=== PATIENT | female | born 1980 | race Caucasian/White ===

== ENCOUNTER 2024-08-02 19:47 | Emergency (ER) | payer MEDICAID, SELFPAY ==
[2024-08-02 20:34] VITALS: BP 116/65; PULSE 73; RESP 18; TEMP 36.7; O2SAT 99; BMI 25.4
--- NOTE | 2024-08-02 20:43 | ED_ITS ---
HPI - General Adult General Chief complaint: Abdominal Pain Stated complaint: ENT and abd pain Time Seen by Provider: 08/02/24 23:20 Source: patient Mode of arrival: ambulatory Limitations: no limitations History of Present Illness ED Provider: Dr. Gricelda Valderrama HPI narrative: Patient comes in the emergency room complaining of sore throat, bilateral ear pain, abdominal discomfort, generalized malaise, diffuse body aches. Patient states she had subjective fever. Denies nausea vomiting or diarrhea. Related Data Previous Rx's ?Medication ?Instructions ?Recorded amoxicillin 500 mg-potassium 1 tab PO TID 10 days #30 tabs 08/02/24 clavulanate 125 mg tablet (Augmentin) ferrous sulfate 325 mg (65 mg 325 mg PO DAILY #90 tabs 08/02/24 iron) tablet Allergies Allergy/AdvReac Type Severity Reaction Status Date / Time No Known Allergies Allergy Verified 08/02/24 20:37 Review of Systems 2 Review of Systems: Constitutional : No Weight loss, complaining of subjective fever, chills, fatigue and generalized malaise ENT/Mouth : No Hearing loss, No Ear Pain, No Nasal Congestion, No Sinus Pain, No Hoarseness, complaining of sore throat, No Rhinorrhea, No Swallowing Difficulty Eyes: No Eye Pain, No Swelling, No Redness, No Foreign Body, No Discharge, No Vision Changes Cardiovascular : No Chest Pain, No SOB, No Dyspnea on Exertion, No Orthopnea, No Edema, No Palpitations Respiratory : No Cough, No Sputum, No Wheezing, No Smoke Exposure, No Dyspnea Gastrointestinal : No Nausea, No Vomiting, No Diarrhea, No Constipation, complaining of mild discomfort with no significant abdominal Pain, No Hematochezia, No Melena Genitourinary : no irregular bleeding, No Dysuria, No Urinary Frequency, No Hematuria, No Urinary Incontinence, No Urgency, No Flank Pain, No Urinary Flow Changes, No Hesitancy Musculoskeletal : No joint pain, No Myalgias, No Joint Swelling Skin : No Skin Lesions, No rash Neuro : No Weakness, No Numbness, No Paresthesias, No Loss of Consciousness, No Dizziness, No Headache Psych : No Anxiety/Panic, No Depression, No SI/HI/AH/VH, No Social Issues, Heme/Lymph: No Bruising, No Bleeding,No Lymphadenopathy Endocrine : No Polyuria, No Polydipsia, No Temperature Intolerance Physical Exam ED Vital Signs: Vital Signs - 24 hr 04/04/25 20:34 Temperature 98.1 F Pulse Rate 73 Respiratory Rate 18 Blood Pressure 116/65 Pulse Oximetry 99 Oxygen Delivery Method Room Air BMI result Body Mass Index 25.4 Const Other: Appearance: Alert. Oriented X3. No acute distress. Well-appearing Eyes: Pupils equal, round and reactive to light. ENT: Mildly erythematous oropharynx, no exudates, no abscesses, bilateral tympanic membranes within normal limits Neck: Normal inspection. Neck supple. No lymph nodes noted. No crepitus CVS: Normal heart rate and rhythm. Pulses normal. Normal S1 and S2 Respiratory: No respiratory distress. Breath sounds normal. No Wheezing. No rales Abdomen: Soft and nontender. No rigidity. No distention. Skin: Skin warm and dry. Normal skin color. Normal skin turgor. Extremities: No lower extremity edema. No Lacerations. No Rash Neuro: Oriented X 3. No motor deficit. No sensory deficit. Moving all extremities. No slurred speech. CN 2 through 12 grossly intact Psych: calm, cooperative, normal affect Course Course Course Narrative: RME performed by Usha Clancy PA-C. Patient is a 43 year old assigned female at presenting to the emergency department with sore throat, abdominal pain, bilateral ear pain, and feeling generally unwell. Detailed physical exam and review of systems are deferred to the energy efficiency engineer. Labs and swabs ordered. Patient placed back in the waiting room pending room availability and results. Medical Decision Making Medical Decision Making [facility] Narrative: Patient's white blood cell count within normal limits, patient is a bit anemic, likely iron deficiency, MCV decreased. Platelets within normal limits. Chemistry within normal limits, LFTs normal. Serology negative for influenza RSV, positive for strep Differential Diagnosis Differential Diagnoses: The differential diagnosis associated with the presentation includes (As above) Lab Data [facility] Lab Attestation statement: I reviewed the patient's lab results. 08/02/24 20:52 08/02/24 20:52 Labs: Lab Results 08/02/24 08/02/24 Range/Units 20:52 21:27 WBC 5.6 (4.8-10.8) X10*3/uL RBC 4.36 (4.20-5.50) X10*6/uL Hgb 9.4 L (12.0-16.0) g/dl Hct 30.6 L (37.0-47.0) % MCV 70.2 L (80.0-98.0) fL MCH 21.6 L (27.0-33.0) pg MCHC 30.7 L (31.0-35.0) g/dl RDW 15.9 (11.0-16.0) % Plt Count 229 (160-400) X10*3/uL MPV 11.2 (9.4-12.3) fL Immature Gran % (Auto) 0.4 (0.0-0.4) % Neut % (Auto) 60.8 (45-73) % Lymph % (Auto) 27.5 (20-40) % Haakon % (Auto) 7.9 (2-11) % Eos % (Auto) 2.7 (0-4) % Baso % (Auto) 0.7 (0-2) % Lymph # (Auto) 1.5 (1.2-4.9) X10*3/uL Haakon # (Auto) 0.4 (0.1-1.2) X10*3/uL Eos # (Auto) 0.2 (0.0-0.4) X10*3/uL Baso # (Auto) 0.0 (0.0-0.2) X10*3/uL Abs Immat Gran (auto) 0.02 (0.00-0.03) X10*3/uL Absolute Neuts (auto) 3.4 (2.0-8.3) x10*3/uL Absolute Nucleated RBC 0.000 (0.0-0.012) X10*3/uL Nucleated RBC % (auto) 0.0 (0.0-0.2) /100WBC Sodium 141 (135-145) mmol/L Potassium 4.0 (3.3-5.1) mmol/L Chloride 111 H (96-108) mmol/L Carbon Dioxide 24 (22-29) mmol/L Anion Gap 10 L (12-20) BUN 15 (9-16) mg/dL Creatinine 0.82 (0.5-1.4) mg/dL Estim Creat Clear Calc 81.0 Estimated GFR > 60 Random Glucose 97 (60-115) mg/dL Calcium 9.6 (8.4-10.2) mg/dL Total Bilirubin 0.2 (0.0-1.0) mg/dL AST 18 (5-31) U/L ALT 8 (0-31) U/L Alkaline Phosphatase 62 (39-117) U/L Total Protein 7.0 (6.5-8.0) g/dL Albumin 4.0 (3.5-5.0) g/dL Beta HCG, Quant < 2 mIU/mL Urine Color Yellow Urine Appearance Clear Urine pH 5.5 (5.0-9.0) Ur Specific [place] 1.025 (1.005-1.025) Urine Protein Trace (Neg-Trace) mg/dL Urine Glucose (UA) Negative (Negative) mg/dL Urine Ketones Negative (Negative) mg/dL Urine Blood Negative (Negative) Urine Nitrite Negative (Negative) Ur Leukocyte Esterase Negative (Negative) Urine RBC 0-2 (0-2) /HPF Urine WBC 11-20 H (0-5) /HPF Ur Squamous Epith Cells 11-20 (0-2) /HPF Urine Bacteria 1+ (None Seen) Hyaline Casts 3-5 (0-2) /LPF Influenza Type A (PCR) NEGATIVE (Negative) Influenza Type B (PCR) NEGATIVE (Negative) RSV RNA Qual (PCR) NEGATIVE (Negative) SARS-CoV-2 RNA (RT-PCR) NEGATIVE (Negative) S. pyogenes GrpA SUAD Positive A (Negative) Discharge Plan Discharge Clinical Impression: Acute streptococcal pharyngitis, Anemia Patient Disposition: Home, Self-Care Instructions: Strep Throat (ED) Additional Instructions: Please follow-up with your primary care physician tomorrow. If you have any worsening or new symptoms, please return to the emergency room or call 911 Prescriptions: New amoxicillin-pot clavulanate [Augmentin] 500-125 mg tablet 1 tab PO TID 10 Days Qty: 30 0RF ferrous sulfate 325 mg (65 mg iron) tablet 325 mg PO DAILY Qty: 90 0RF
[2024-08-02 20:56] LABS: MANUAL DIFF FLAG NO
[2024-08-02 20:58] LABS: Basophils Percent Auto 0.7 % (0-2); Eosinophils Absolute Auto 0.2 X10*3/uL (0.0-0.4); Eosinophils Percent Auto 2.7 % (0-4); Hematocrit 30.6 % (37.0-47.0); Hemoglobin 9.4 g/dl (12.0-16.0); Imm Gran Abs Auto 0.02 X10*3/uL (0.00-0.03); Imm Gran Pct Auto 0.4 % (0.0-0.4); Lymphocytes Absolute Auto 1.5 X10*3/uL (1.2-4.9); Lymphocytes Percent Auto 27.5 % (20-40); Mean Corpuscular HGB Conc 30.7 g/dl (31.0-35.0); Mean Corpuscular Hemoglobin 21.6 pg (27.0-33.0); Mean Corpuscular Volume 70.2 fL (80.0-98.0); Mean Platelet Volume 11.2 fL (9.4-12.3); Monocytes Absolute Auto 0.4 X10*3/uL (0.1-1.2); Monocytes Percent Auto 7.9 % (2-11); Neutrophils Absolute Auto 3.4 x10*3/uL (2.0-8.3); Neutrophils Percent Auto 60.8 % (45-73); Platelet Count 229 X10*3/uL (160-400); Red Blood Count 4.36 X10*6/uL (4.20-5.50); Red Cell Distribution Width 15.9 % (11.0-16.0); White Blood Count 5.6 X10*3/uL (4.8-10.8)
[2024-08-02 21:04] LABS: IDNOW Serial# 55D5AD1C; Strep A Nucleic Acid Positive (Negative)
[2024-08-02 21:10] LABS: Alanine Aminotransferase 8 U/L (0-31); Alkaline Phosphatase 62 U/L (39-117); Anion Gap 10 (12-20); Aspartate Amino Transferase 18 U/L (5-31); Bilirubin Total 0.2 mg/dL (0.0-1.0); Blood Urea Nitrogen 15 mg/dL (9-16); Calcium 9.6 mg/dL (8.4-10.2); Carbon Dioxide 24 mmol/L (22-29); Chloride 111 mmol/L (96-108); Estimated Glomerular Filt Rate > 60; Glucose Random 97 mg/dL (60-115); Sodium 141 mmol/L (135-145)
[2024-08-02 21:18] LABS: HCG Quantitative < 2 mIU/mL
[2024-08-02 21:33] LABS: Influenza A PCR NEGATIVE (Negative); Influenza B PCR NEGATIVE (Negative); Resp Syncy Virus RNA Qual PCR NEGATIVE (Negative); SARS COV2 PCR INHOUSE NEGATIVE (Negative)
[2024-08-02 21:36] LABS: Appearance Urine Clear; Color Urine Yellow; Glucose Urine UA Negative (Negative); Leukocyte Esterase Urine Negative (Negative); Nitrite Urine Negative (Negative); PH 5.5 (5.0-9.0); Specific Gravity - Urine 1.025 (1.005-1.025); Urine Blood Negative (Negative); Urine Ketones Negative (Negative); Urine Protein Trace mg/dL (Neg-Trace)
[2024-08-02 21:54] LABS: Bacteria Urine 1+ (None Seen); RBC Urine 0-2 /HPF (0-2); UACC Culture Trigger YES
--- OUTSIDE RECORDS SUMMARY | 2024-08-03 00:05 | XMS_ITS | Clinical Summary ---
Author Organization [facility] Address [address] [place] [address] Care Team Providers Care Linux Systems Analyst Name Role Phone Terrell Frias Primary Care Provider [phone] Source Comments PLEASE NOTE, if this patient is a minor, it may be UNLAWFUL to discuss sensitive information that is contained in these records (such as FAMILY PLANNING, MENTAL HEALTH or SUBSTANCE ABUSE) with the minor patient's parent or other person without the patient's specific authorization.[facility] Allergies Active Allergy Reactions Criticality Noted Date Comments Ferrous Sulfate Medium 07/21/2017 Other reaction(s): Side Effect (OK to Rx in future) GI upset Medications sodium chloride (OCEAN) 0.65 % nasal sprayIndication s:Nasal congestion Place 1 [place] into the nostril(s) as needed for congestion 44 mL 1 4 Active acetaminophen (TYLENOL) 325 mg tabletIndicatio ns:Neck pain, bilateral Take 1 Tablet by mouth every 6 (six) hours as needed for pain 30 Tablet 4 Active Active Problems Problem Noted Date Diagnosed Date Anemia 05/30/2022 Class 1 obesity 05/30/2022 Constipation during ([facility]) 05/30/19 23 Poor appetite 05/30/2022 Large for dates affecting management of mother ( [facility]) 05/30/2022 History of depression 05/30/2022 History of delivery 05/30/2022 Advanced maternal age in multigravida ([facility]) 05/30/2022 ([facility]) 05/30/2022 Request for sterilization 05/30/2022 Uses Vietnamese as primary spoken language 05/30/19 23 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 Lipoma of skin and subcutaneous tissue of neck 0 05/12/2019 H. pylori infection 03/19/2019 GERD (gastroesophageal reflux disease) 9 Encounter for insertion of i ntrauterine contraceptive device 09/15/2017 Cervical cancer screening 09/04/2017 Overview (05/30/2022): 06/2017; negative pap, HPV negative Menorrhagia with regular cycle 09/04/2017 Overview (05/30/2022): Pt states flow is much heavier when would take ibuprofen Iron deficiency anemia 07/21/2017 Chronic nonintractable headache 06/21/2017 Resolved Problems Problem Noted Date Diagnosed Date Resolved Date IUD (intrauterine device) in place 09/27/2018 05/12/2019 Overview (09/27/2018): Mirena IUD placed September 2017. Immunizations Immunization Administration Dates Next Due Hep B,adult,adjuvanted (HEPLISAV) 05/30/2022 INFLUENZA, SEASONAL, INJECTABLE 04/14/2021 MODERNA COVID-19 VACCINE BIV ALENT, BLUE CAP, 6M+ 05/30/2022 PFIZER COVID VACCINE, PURPLE CAP, 12+ 05/24/2021 ,12/16/2020,11/24/2020 PPD 06/10/2019 TDAP 08/20/2021,08/28/2018 Family History Medical History Relation Name Comments Diabetes Maternal Aunt Thyroid Disease Maternal Aunt Relation Name Status Comments Father Maternal Aunt Mother Alive Social History Tobacco Use Types Packs/Day Years Used Date Smoking Tobacco: Never Smokeless Tobacco: Never Tobacco Cessation:Counseling Given: Not Answered Alcohol Use Standard Drinks/Week Comments No 0 (1 standard drink = 0.6 oz pur e alcohol) Social Connections Answer Date Recorded Connectedness 0 05/30/2022 Financial Resource Strain Answer Date R ecorded Financial Resource Strain 0 2022 Stress Answer Date Recorded Stress 0 05/30/2022 Physical Activity Answer Date Recorded Physical Activity 0 12/24/2018 Food Insecurity Answer Date Recorded Food 0 05/30/2022 Transportation Needs Answer Date Record ed Transportation 0 05/30/2022 Housing Stability Answer Date Recorded Housing 0 05/30/2022 Safety and Environment Answer Date Nickolas rded Safety 0 05/30/2022 Utilities Answer Date Recorded Utilities 0 05/30/2022 Employment Answer Date Recorded Employment 0 12/24/2018 Comments Unknown Sex and Gender Information Value Date Recorded Sex Assigned at Female 08/28/2018 7:18 AM PDT Legal Sex Female 6:39 AM PDT Gender Identity Female 08/28/2018 7:18 AM PDT Sexual Orientation Straight 08/28/2018 7: 18 AM PDT Last Filed Vital Signs Vital Sign Reading Time Taken Comments Blood Pressure 110/70 09/28/2023 2:00 PM EDT Pulse 84 09/28/2023 2:00 PM EDT Temperature 36.5 ??C (97.7 ??F) 09/28/2023 2:00 PM ED T Respiratory Rate 20 09/28/2023 2:00 PM EDT Oxygen Saturation 99% 09/28/2023 2:00 PM EDT Inhaled Oxygen Concentration - - Weight 69.4 kg (153 lb) 09/28/2023 2:00 PM EDT Height 154.9 cm (5' 1 ) 09/28/2023 2:00 PM EDT Body Mass Index 28.91 09/28/2023 2:00 PM EDT Plan of Treatment Health Maintenance Due Date Last Done Comments Anxiety Screening 1981 HPV Screening 1981 Pap + HPV 1981 Cervical Cancer Screening 2002 Pap Smear 2002 Breast Cancer Screening (Mammogram) 2021 Relationship Safety Screening/Counseling 05/30/2023 05/30/2022, 02/14/2020 [id number] ( season) 2023 05/30/2022, 05/24/2021, 12/16/2020, Additional history exists Imm-Influenza (#1) 2023 04/14/2021 Alcohol and Drug Screen 05/01/2024 05/30/19 23, 02/14/2020, 05/08/2019, Additional history exists Depression Annual Screen 05/01/2024 05/30/2022 Annual Preventive Care Visit 09/27/2024, 05/30/2022, 02/14/2020, Additional history exists Hypertension Screening (#1) 09/27/2024 Tobacco Screening 09/27/2024 09/28/2023 Diabetes Screening 09/27/2026 09/28/2023, 1 , 02/14/2020, Additional history exists Lipid Screening 09/27/2028 09/28/2023, 01/29, 08/28/2018 Imm-DTaP/Tdap/Td (3 - Td or Tdap) 08/21/2031 022, 08/28/2018 HIV Screening Completed 08/28/2018 Hepatitis C Screening Completed 02/14/2020 Imm-Hepatitis B Discontinued 05/30/2022 Cervical Ablation/Cold-Knife Conization Discontinued Cervical Cryotherapy Discontinued Colposcopy Discontinued Endometrial Biopsy Discontinued Excision/Leep Discontinued HPV Genotyping Discontinued Vaginal Pap Discontinued Vulvoscopy Discontinued Procedures Procedure Name Priority Date/Time Associated Diagnosis Comments COMPREHENSIVE METABOLIC PANEL Routine 09/28/2023 2:33 PM EDT Physical exam Screening due LIPID PANEL Routine 09/28/2023 2:33 PM EDT Physical exam Screening due HEPATITIS C ANTIBODY Routine 02/14/2020 3:15 PM EDT Routine general medical examination at a health care facility ANTIBODY HIV-1&HIV-2 SINGLE RESULT Routine 08/28/2018 11:17 AM EDT Routine general medical examination at a health care facility from Last 3 Months or Most Recently Relevant to Health Maintenance Results * (ABNORMAL) LIPID PANEL (09/28/2023 2:33 PM EDT) CHOLESTEROL, TOTAL 236(H) <200 mg/dL [facility] HDL CHOLESTEROL 70 > OR = 50 mg/dL [facility] [employer] TRIGLYCERIDES 192(H) <150 mg/dL [facility] LDL-CHOLESTEROL 133(H) 99 mg/dL (calc) [facility] Comment: Reference range: <100 Desirable range <100 mg/dL for primary prevention; ?? <70 mg/dL for patients with CHD or diabetic patients with > or = 2 CHD risk factors. LDL-C is now calculated using the Sher calculation, which is a validated novel method providing better accuracy than the Friedewald equation in the estimation of LDL-C. Gabino SS et al. JADA. 2013;310(19): 7750-9167 (http://education.Myxer/faq/GXQ820) CHOL/HDLC RATIO 3.4 <5.0 (calc) [facility] NON-HDL CHOLESTEROL 166(H) <130 mg/dL (calc) [facility] Comment: For patients with diabetes plus 1 major ASCVD risk factor, treating to a non-HDL-C goal of <100 mg/dL (LDL-C of <70 mg/dL) is considered a therapeutic option. Blood Blood / Unknown 09/28/2023 2 :33 PM EDT 09/28/2023 2:33 PM EDT Sanjana Cortez PA-C LAB - BLOOD DRAW Final Resu lt [facility] [address] [place] [id number], [facility] [address] [place] [phone] * (ABNORMAL) COMPREHENSIVE METABOLIC PANEL (09/28/2023 2:33 PM EDT) [facility] GLUCOSE 89 65 - 99 mg/dL [facility] Comment: ?Fasting reference interval UREA NITROGEN (BUN) 13 7 - 25 mg/dL [facility] CREATININE (blood) 0.74 0.50 - 0.99 mg/dL [facility] EGFR 104 > OR = 60 mL/min/1. 73m2 [facility] BUN/CREATININE RATIO SEE NOTE: [facility] Comment: ?? Not Reported: BUN and Creatinine are within ?? reference range. ? SODIUM 139 135 - 146 mmol/L [facility] POTASSIUM 4.4 3.5 - 5.3 mmol/L [facility] CHLORIDE 104 98 - 110 mmol/L [facility] CARBON DIOXIDE 29 20 - 32 mmol/L [facility] CALCIUM 8.8 8.6 - 10.2 mg/dL [facility] PROTEIN, TOTAL 7.1 6.1 - 8.1 g/dL [facility] ALBUMIN 4.3 3.6 - 5.1 g/dL [facility] GLOBULIN 2.8 1.9 - 3.7 g/dL (calc) [facility] ALBUMIN/GLOBULI N RATIO 1.5 1.0 - 2.5 (calc) [facility] BILIRUBIN, TOTAL 0.2 0.2 - 1.2 mg/dL [facility] ALKALINE PHOSPHATASE 83 31 - 125 U/L [facility] AST 25 10 - 30 U/L [facility] ALT 30(H) 6 - 29 U/L [facility] Blood Blood / Unknown 09/28/2023 2 :33 PM EDT 09/28/2023 2:33 PM EDT Sanjana Cortez PA-C LAB - BLOOD DRAW Edited Res ult - Final [facility] [address] [id number], [facility] [address] [id number] * HEPATITIS C ANTIBODY (02/14/2020 3:15 PM EDT) HEPATITIS C VIRUS SCREEN NEGATIVE NEGATIVE [facility] Blood Blood / Unknown 02/14/2020 3 :15 PM EDT 02/14/2020 3:28 PM EDT Narrative [facility] - 02/14/2020 7:19 PM EDT [employer], a member of [address] [address] Analytical Data Scientist - Karina Esteban MD [place] ID [id number] ORD# [id number] Bharti Gurung [employer] LAB - BLOOD DRAW Final Result [facility] [address] [place] [address], [place] [phone] * HIV-1 & HIV-2 ANTIBODIES (08/28/2018 11:17 AM EDT) [facility] HIV 1 AND 2 ANTIBODY SCREEN NEGATIVE NEGATIVE [facility] Comment: This assay is a 4th generation assay allowing for earlier detection of HIV infection by detecting the presence of the HIV-1 p24 antigen as well as the traditional antibodies to HIV type 1 (including group O) and type 2. ??Use of a 4th generation assay is the current CDC recommendation for HIV screening. Blood specimen (specimen) Blood / Unknown 08/28/2018 11:17 AM EDT 08/28/2018 11:[address] [facility] - 08/28/2018 4:29 PM EDT [employer], a member of [address] [address] Analytical Data Scientist - Skylar Martinez MD [place] [id number] ORD# [id number] Vickie Milian PA-C LAB - BLOOD DRAW Final Re sult Performing Organization Address City/[facility]/ZIP Co de Phone Number [address] [address], [place] [phone] from Last 3 Months or Most Recently Relevant to Health Maintenance Insurance [employer] Care Teams Linux Systems Analyst Relationship Specialty Start Date End Date Terrell Frias PA [address] [place] [address] PCP - General [place]ICINE[place] 03/08/22
--- OUTSIDE RECORDS SUMMARY | 2024-08-03 00:05 | XMS_ITS | Encounter Summary ---
Author Organization [facility] Address [address] [place] [address] Care Team Providers Care Sports Information Director Name Role Phone Grover Baker MD Primary Care Provider [phone]- [phone] Grover Baker MD Primary Care Provider +1- [phone] Encounter Details Date Type Department Care Team (Late st Contact Info) Description 06/21/2017 Orders Only [facility] Medicine [address] [place] [phone] Grover Baker MD [address] [address] Social History Tobacco Use Types Packs/Day Years Used Date Smoking Tobacco: Never Smokeless Tobacco: Never Alcohol Use Standard Drinks/Week Comments Yes 0 (1 standard drink = 0.6 oz pur e alcohol) social Comments No Sex and Gender Information Value Date Recorded Sex Assigned at Not on file Legal Sex Female 2:19 PM EST Gender Identity Not on file Sexual Orientation Not on file Occupation Industry Job Start Date Job End Date unemployed Not on file Not on file Not on file documented as of this encounter Plan of Treatment Not on file documented as of this encounter Procedures * Due to [place] state law, this organization might not be sharing negative HIV tests. Procedure Name Priority Date/Time Associated Diagnosis Comments THINPREP TIS PAP, HPV MRNA E6/E7 RFX HPV 16,18/45, CT/NG Routine 06/21/2017 5:37 PM EST Encounter for cervical Pap smear with pelvic exam CBC (H/H, RBC, INDICES,WBC, PLT) Routine 06/21/2017 4:11 PM EST Anemia, unspecified type LIPID PANEL WITH REFLEX TO DIRECT LDL Routine 06/21/2017 4:11 PM EST Screening, lipid BASIC METABOLIC PANEL WITH (GFR) Routine 06/21/2017 4:11 PM EST Screening for diabetes mellitus IRON PROFILE (IRON/TIBC), SERUM Routine 06/21/2017 4:09 PM EST Anemia, unspecified type FERRITIN Routine 06/21/2017 4:09 PM EST Anemia, unspecified type documented in this encounter Results * Due to [place] state law, this organization might not be sharing negative HIV tests. * THINPREP TIS PAP, HPV MRNA E6/E7 RFX HPV 16,18/45, CT/NG (06/21/2017 5:37 PM EST) Clinical information None given [facility] Date last menstrual period NONE GIVEN [facility] Date of previous PAP smear NONE GIVEN [facility] Date of previous biopsy NONE GIVEN [facility] Specimen source (Cvx/Vag) Cervix, Endocervix [facility] Statement of Adequacy (Cvx/Vag) Satisfactory for evaluation. Endocervical/vallejo sformation zone component present. Age and/or menstrual status not provided [facility] Cytology, Pap Smear Negative for intraepithelial lesion or malignancy. [facility] Microorganism identified (Cvx/Vag) Shift in vaginal rudy suggestive of bacterial vaginosis. [facility] Cytology study comment (Cvx/Vag) This Pap test has been evaluated with computer assisted technology. [facility] Canvas Shop Laborer (Cvx/Vag) [place], CT(ASCP) CT screening location: [place] [address] [facility] COMMENT SEE NOTE [facility] Comment: EXPLANATORY NOTE: The Pap is a screening test for cervical cancer. It is not a diagnostic test and is subject to false negative and false positive results. It is most reliable when a satisfactory sample, regularly obtained, is submitted with relevant clinical findings and history, and when the Pap result is evaluated along with historic and current clinical information. HPV MRNA E6/E7 Not Detected Not Detected [facility] Comment: This test was performed using the APTIMA HPV Assay ([employer] This assay detects E6/E7 viral messenger RNA (mRNA) from 14 high-risk HPV types (16,18,31,33,35,39,45,51,52,56,58,59,66,68). Chlamydia trachomatis rRNA NOT DETECTED NOT DETECTED [facility] Neisseria Gonorrhoeae rRNA NOT DETECTED NOT DETECTED [facility] COMMENT SEE NOTE [facility] Comment: This test was performed using the APTIMA COMBO2 Assay ([employer] The analytical performance characteristics of this assay, when used to test SurePath specimens have been determined by [employer]. 06/21/2017 5:37 PM EST 06/22/2017 4:37 PM EST Narrative Resulting Agency Comment [id number] us Grover Baker MD PATHOLOGY-INTERFACED Final Result Performing Organization Address City/State/[facility] Co de Phone Number [facility] [address] [place] [address] * BASIC METABOLIC PANEL WITH (GFR) (06/21/2017 4:11 PM EST) Glucose 79 65 - 99 mg/dl [facility] Urea Nitrogen Blood (BUN) 11 7 - 25 mg/dL [facility] Creatinine 0.82 0.50 - 1.16 mg/dL [facility] Sodium 137 136 - 145 mmo/L [facility] Potassium 4.0 3.5 - 5.3 mmol/L [facility] Chloride 99 98 - 107 mmo/L [facility] Carbon dioxide 25 23 - 33 mmol/L [facility] Calcium 9.7 8.5 - 10.4 mg/dL [facility] GFR 84 >60 ml/min [facility] Comment:If the patient is Af rican Pakistani, please multiply result by 1.210 06/21/2017 4:11 PM EST 06/21/2017 4:11 PM EST Narrative [facility] - 06/21/2017 7:08 PM EST fasting Patient's primary care provider is: ??N/A Testing performed at: [facility], [address] [place] [address], [address], Technologies Division Chair: Malathi Brewer, Ph.D us Grover Baker MD LABORATORY Final Resul t Performing Organization Address [facility] de Phone Number [address] [address] DIRECTOR Malathi Brewer, Ph.D * (ABNORMAL) LIPID PANEL WITH REFLEX TO DIRECT LDL (06/21/2017 4:11 PM EST) Cholesterol 228(H) <200 mg/dL [facility] Triglyceride 95 <150 mg/dL [facility] HDL Cholesterol 89 >40 mg/dL [facility] Comment: NCEP GUIDELINES Desireable >60 mg/dL Borderline 40-59 mg/dL ?? Undesirable <40 mg/dL LDL Cholesterol 120 <130 mg/dL [facility] CHOL/HDL Ratio 3 0 - 5 [facility] 06/21/2017 4:11 PM EST 06/21/2017 4:11 PM EST Narrative [facility] - 06/21/2017 7:08 PM EST fasting Patient's primary care provider is: ??N/A Testing performed at: [facility], [address] [place] [address], [id number], Technologies Division Chair: Malathi Brewer, Ph.D us Grover Baker MD LABORATORY Final Resul t Performing Organization Address [facility] de Phone Number [address] [address] DIRECTOR Malathi Brewer, Ph.D * (ABNORMAL) CBC (H/H, RBC, INDICES,WBC, PLT) (06/21/2017 4:11 PM EST) WBC 5.5 3.8 - 10.8 K/uL [facility] RBC 5.20(H) 3.80 - 5.10 M/uL [facility] Hemoglobin 11.6(L) 11.7 - 15.5 g/dL [facility] Hematocrit 36.9 35.0 - 45.0 % [facility] MCV 71.0(L) 80.0 - 100.0 fl [facility] MCH 22.3(L) 27.0 - 33.0 pg [facility] MCHC 31.4(L) 32.0 - 36.0 g/dL [facility] RDW 16.6(H) 11.0 - 15.0 % [facility] PLT 214 140 - 400 K/uL [facility] 06/21/2017 4:11 PM EST 06/21/2017 4:11 PM EST Narrative [facility] - 06/21/2017 6:45 PM EST fasting Patient's primary care provider is: ??N/A Testing performed at: [facility], [address] [place] [address], [address], Technologies Division Chair: Malathi Brewer, Ph.D Grover Baker MD LAB SAME DAY RESULT Final R esult Performing Organization Address City/[facility]/ZIP Co de Phone Number [address] [address] DIRECTOR Malathi Brewer, Ph.D * (ABNORMAL) FERRITIN (06/21/2017 4:09 PM EST) Ferritin 5(L) 10 - 154 ng/mL [facility] 06/21/2017 4:09 PM EST 06/22/2017 12:39 AM EST Narrative Resulting Agency Comment [id number] Grover Baker MD LABORATORY Final Resul t [facility] [address] [place] [address] * (ABNORMAL) IRON PROFILE (IRON/TIBC), SERUM (06/21/2017 4:09 PM EST) Iron 24(L) 40 - 190 mcg/dL [facility] Iron binding capacity 393 250 - 450 mcg/dL (calc) [facility] Iron saturation 6(L) 11 - 50 % (calc) [facility] 06/21/2017 4:09 PM EST 06/22/2017 12:39 AM EST Narrative Resulting Agency Comment [id number] Grover Baker MD LABORATORY Final Resul t [facility] [address] [place] [address] documented in this encounter Visit Diagnoses Diagnosis Anemia, unspecified type Screening, lipid Screening for lipoid disorders Screening for diabetes mellitus Encounter for cervical Pap smear with pelvic exam Screening for malignant neoplasm of the cervix documented in this encounter Care Teams Sports Information Director Relationship Specialty Start Date End Date Grover Baker MD PCP - General Internal Medicine 05/18/17 06/28/17 Grover Baker MD PCP - General 06/29/17 documented as of this encounter
--- OUTSIDE RECORDS SUMMARY | 2024-08-03 00:05 | XMS_ITS | Clinical Summary ---
Author Organization [facility] ity Address [address] [place] [address] Care Team Providers Care Hvac Field Service Technician Name Role Phone Unavailable Primary Care Provider Unavailabl e Social History Tobacco Use Types Packs/Day Years Used Date Smoking Tobacco: Never Assessed Comments Unknown Sex and Gender Information Value Date Recorded Sex Assigned at Not on file Legal Sex Female 2:19 AM EST Gender Identity Not on file Sexual Orientation Not on file Plan of Treatment Health Maintenance Due Date Last Done Comments Breast Cancer Screening 1981 DTaP,Tdap,and Td Vaccines (1 - Tdap) 2000 Hepatitis B Vaccines (1 of 3 - 19+ 3-dose series) 2000 Cervical Cancer Screening: P ap Smear 2002 Depression Screening 04/03/2022 HIV Screening 04/03/2022 Hepatitis C Screening 04/03/2022 Social Influencers of Health Screening 04/03/2022 COVID-19 Vaccine (2023-2 5 season) 2023 Influenza Vaccine (#1) 2023 HIB Vaccines Aged Out No longer eligi ble based on patient's age to complete this topic HPV Vaccines Aged Out No longer eligi ble based on patient's age to complete this topic Hepatitis A Vaccines Aged Out No long er eligible based on patient's age to complete this topic IPV Vaccines Aged Out No longer eligi ble based on patient's age to complete this topic MMR Vaccines Aged Out No longer eligi ble based on patient's age to complete this topic Meningococcal ACWY Vaccine Aged Out N o longer eligible based on patient's age to complete this topic Meningococcal B Vacine Aged Out No lo nger eligible based on patient's age to complete this topic Pneumococcal Vaccine: Pediat rics (0 to 5 Years) and At-Risk Patients (6 to 64 Years) Aged Out No longer eligible b ased on patient's age to complete this topic RSV Immunization Patients Un deejay 20 months Aged Out No longer eligible b ased on patient's age to complete this topic Varicella Vaccines Aged Out No longer eligible based on patient's age to complete this topic
--- OUTSIDE RECORDS SUMMARY | 2024-08-03 00:06 | XMS_ITS | Clinical Summary ---
Author Organization [facility] Address [address] [place] [address] Care Team Providers Care Hydraulic Plumber Helper Name Role Phone Grover Baker MD Primary Care Provider [phone] [phone] Allergies Active Allergy Reactions Criticality Noted Date Comments Ferrous Sulfate Side Effect (OK to Rx in future) Medium 07/21/2017 GI upset Medications Amoxicillin 875 MG Tab 1 TABLET EVERY 12 HOURS for 7 days 14 Tab 10/18/2017 Active Ferrous Fumarate 324 (106 FE) MG Tab 1 tablet every other day. 30 Tab 10/20/2017 Active Active Problems Problem Noted Date Diagnosed Date Encounter for insertion of i ntrauterine contraceptive device 09/15/2017 Cervical cancer screening 09/04/2017 Overview (09/04/2017): 06/2017; negative pap, HPV negative Menorrhagia with regular cycle 09/04/2017 Overview (09/04/2017): Pt states flow is much heavier when would take ibuprofen Iron deficiency anemia 07/21/2017 Chronic nonintractable headache 06/21/2017 Family History Medical History Relation Name Comments No Known or Significant Medi jairo History Brother Hypertension Maternal grandmother Heart Disorder Mother exact diagnos is not known No Known or Significant Medi jairo History Sister Relation Name Status Comments Brother Alive Father Maternal grandmother Mother Alive Sister Alive Social History Tobacco Use Types Packs/Day [...] file Not on file Not on file Last Filed Vital Signs Vital Sign Reading Time Taken Comments Blood Pressure 105/69 10/16/2017 2:52 PM EDT Pulse 88 10/16/2017 2:52 PM EDT Temperature - - Respiratory Rate - - Oxygen Saturation 99% 10/16/2017 2:52 PM EDT Inhaled Oxygen Concentration - - Weight 53.5 kg (118 lb) 10/16/2017 3:06 PM EDT Height 160 cm (5' 3 ) 06/21/2017 3:17 PM EST Body Mass Index 20.9 06/21/2017 3:17 PM EST Plan of Treatment Health Maintenance Due Date Last Done Comments Hepatitis C Screening 1981 DTaP/Tdap/Td (1 - Tdap) 11/26/1999 Hep B (1 of 3 - 19+ 3-dose series) 2000 Pap Smear 06/21/2020 06/21/2017 Mammogram/Breast Imaging 2021 COVID-19 Vaccine ( - 2023-2 5 season) 2023 Influenza (#1) 2023 Zoster (Shingrix) (1 of 2) 11/26/2031 HPV Vaccine Aged Out No longer eligi ble based on patient's age to complete this topic Hep A Aged Out No longer eligi ble based on patient's age to complete this topic Hib Aged Out No longer eligi ble based on patient's age to complete this topic Meningococcal ACWY Aged Out No longer eligible based on patient's age to complete this topic Pneumococcal Aged Out No longer eligi ble based on patient's age to complete this topic Procedures * Due to [place] TEVIZZ law, this organization might not be sharing negative HIV tests. Procedure Name Priority Date/Time Associated Diagnosis Comments THINPREP TIS PAP, HPV MRNA E6/E7 RFX HPV 16,18/45, CT/NG Routine 06/21/2017 5:37 PM EST Encounter for cervical Pap smear with pelvic exam from Last 3 Months or Most Recently Relevant to Health Maintenance Results * Due to [place] TEVIZ[place] law, this organization might not be sharing [...] in vaginal rudy suggestive of bacterial vaginosis. [facility] Cytology study comment (Cvx/Vag) This Pap test has been evaluated with computer assisted technology. [facility] Swager Operator (Cvx/Vag) [facility], CT(ASCP) CT screening location: [place] [address] [facility] COMMENT SEE NOTE [facility] Comment: EXPLANATORY NOTE: The Pap is a [...] was performed using the APTIMA HPV Assay ([employer] This assay detects E6/E7 viral messenger RNA (mRNA) from 14 high-risk HPV types (16,18,31,33,35,39,45,51,52,56,58,59,66,68). Chlamydia trachomatis rRNA NOT DETECTED NOT DETECTED [facility] Neisseria Gonorrhoeae rRNA NOT DETECTED NOT DETECTED [facility] COMMENT SEE NOTE [facility] Comment: This test was performed using the APTIMA COMBO2 Assay ([employer] The analytical performance characteristics of this assay, when used to test SurePath specimens have been determined by [employer]. 06/21/2017 5:37 PM EST 06/22/2017 4:37 PM EST Narrative Resulting Agency Comment [id number] Grover Baker MD PATHOLOGY-INTERFACED Final Result [facility] [address] [place] [address] from Last 3 Months or Most Recently Relevant to Health Maintenance Insurance [employer] Care Teams Hydraulic Plumber Helper Relationship Specialty Start Date End Date Grover Baekr MD PCP - General 06/29/17
--- OUTSIDE RECORDS SUMMARY | 2024-08-03 00:06 | XMS_ITS | Encounter Summary ---
Author Organization [facility] Address [address] [place] [address] Care Team Providers Care Animal Science Professor Name Role Phone Grover Baker MD Primary Care Provider +1 [phone] Encounter Details Date Type Department Care Team (Late st Contact Info) Description 10/16/2017 Orders Only [facility] Medicine [address] [place] [phone] Grover Baker MD [address] [address] Social History Tobacco Use Types Packs/Day Years [...] of this encounter Procedures * Due to [place] state law, this organization might not be sharing negative HIV tests. Procedure Name Priority Date/Time Associated Diagnosis Comments ERYTHROCYTE SEDIMENTATION RATE (ESR) Routine 10/16/2017 3:20 PM EDT Lymph node enlargement CBC (H/H, RBC, INDICES,WBC, PLT) Routine 10/16/2017 3:20 PM EDT Lymph node enlargement COMPREHENSIVE METABOLIC PANEL WITH GFR Routine 10/16/2017 3:20 PM EDT Lymph node enlargement ANT-MCKEON VIRUS PANEL COMPREHENSIVE Routine 10/16/2017 3:19 PM EDT Lymph node enlargement C-REACTIVE PROTEIN (CRP) - INFLAMMATION Routine 10/16/2017 3:19 PM EDT Lymph node enlargement documented in this encounter Results * Due to [place] state law, this organization might not be sharing negative HIV tests. * ERYTHROCYTE SEDIMENTATION RATE (ESR), [place] (10/16/2017 3:20 PM EDT) Sedimentation Rate [place] (ESR) 4 0 - 20 mm/hr [facility] 10/16/2017 3:20 PM EDT 10/16/2017 3:20 PM EDT Narrative [facility] - 10/16/2017 6:36 PM EDT non fasting Patient's primary care provider is: ??N/A Testing performed at: [facility], [address] [place] [address], [id number], Data Analytics Chief Scientist: Malathi Brewer, Ph.D Grover Baker MD LAB SAME DAY RESULT Final R esult [address] [address] DIRECTOR Malathi Brewer, Ph.D * (ABNORMAL) COMPREHENSIVE METABOLIC PANEL WITH GFR (10/16/2017 3:20 PM EDT) Glucose 86 65 - 99 mg/dl [facility] Urea Nitrogen Blood (BUN) 14 7 - 25 mg/dL [facility] Creatinine 0.83 0.50 - 1.16 mg/dL [facility] Sodium 146(H) 136 - 145 mmo/L [facility] Potassium 4.8 3.5 - 5.3 mmol/L [facility] Chloride 105 98 - 107 mmo/L [facility] Calcium 10.0 8.5 - 10.4 mg/dL [facility] Protein Total (Serum) 7.8 6.0 - 8.3 g/dL [facility] Albumin 4.8 3.5 - 5.2 g/dL [facility] Globulin 3 2 - 4 G/DL [facility] Bilirubin Total 0.50 0.00 - 1.20 mg/dL [facility] Alkaline phosphatase 52 33 - 130 U/L [facility] AST (SGOT) 22 <38 U/L [facility] ALT (SGPT) 11 <47 U/L [facility] Carbon dioxide 28 23 - 33 mmol/L [facility] GFR 83 >60 ml/min [facility] Comment:If the patient is Af rican Brazilian, please multiply result by 1.210 10/16/2017 3:20 PM EDT 10/16/2017 3:20 PM EDT Narrative [facility] - 10/16/2017 6:06 PM EDT non fasting Patient's primary care provider is: ??N/A Testing performed at: [facility], [address] [place] [address], [address], Data Analytics Chief Scientist: Malathi Brewer, Ph.D us Grover Baker MD LABORATORY Final Resul t [address] [address] DIRECTOR Malathi Brewer, Ph.D * (ABNORMAL) CBC (H/H, RBC, INDICES,WBC, PLT) (10/16/2017 3:20 PM EDT) WBC 5.9 3.8 - 10.8 K/uL [facility] RBC 5.16(H) 3.80 - 5.10 M/uL [facility] Hemoglobin 10.8(L) 11.7 - 15.5 g/dL [facility] Hematocrit 36.3 35.0 - 45.0 % [facility] MCV 70.3(L) 80.0 - 100.0 fl [facility] MCH 20.9(L) 27.0 - 33.0 pg [facility] MCHC 29.8(L) 32.0 - 36.0 g/dL [facility] RDW 16.9(H) 11.0 - 15.0 % [facility] PLT 242 140 - 400 K/uL [facility] 10/16/2017 3:20 PM EDT 10/16/2017 3:20 PM EDT Narrative [facility] - 10/16/2017 5:32 PM EDT non fasting Patient's primary care provider is: ??N/A Testing performed at: [facility], [address] [place] [address], [address], Data Analytics Chief Scientist: Malathi Brewer, Ph.D Grover Baker MD LAB SAME DAY RESULT Final R esult Performing Organization Address City/State/[facility] Co de Phone Number [address] [address] DIRECTOR Malathi Brewer, Ph.D * (ABNORMAL) ANT-MCKEON VIRUS PANEL COMPREHENSIVE (10/16/2017 3:19 PM EDT) Ant Mckeon virus early diffuse Ab.IgG <9.00 U/mL [facility] Comment: ? U/mL ? Interpretation ? ---- ? <9.00 ?Negative ? 9.00-10.99 ? Equivocal ? >10.99 ? Positive Ant Mckeon virus capsid Ab.IgM <36.00 U/mL [facility] Comment: ?U/mL ?Interpretation ?---- ?<36.00 ?Negative ?36.00-43.99 ? Equivocal ?>43.99 ?Positive Ant Mckeon virus capsid Ab.IgG >750.00(H) U/mL [facility] Comment: ? U/mL ? Interpretation ? ---- ? <18.00 ? Negative ? 18.00-21.99 ?Equivocal ? >21.99 ? Positive Ant Mckeon virus nuclear Ab.IgG 507.00(H) U/mL [facility] Comment: ? U/mL ? Interpretation ? ---- ? <18.00 ? Negative ? 18.00-21.99 ?Equivocal ? >21.99 ? Positive INTERPRETATION Suggestive of a past Ant-Mckeon virus infection. In infants, a similar pattern may occur as a result of passive maternal transfer of antibody. [facility] 10/16/2017 3:19 PM EDT 10/16/2017 9:11 PM EDT Narrative Resulting Agency Comment [id number] us Grover Baker MD LABORATORY Final Resul t [facility] [address] [place] [address] * C-REACTIVE PROTEIN (CRP) - INFLAMMATION (10/16/2017 3:19 PM EDT) C reactive protein <0.2 <8.0 mg/L [facility] 10/16/2017 3:19 PM EDT 10/16/2017 9:11 PM EDT Narrative Resulting Agency Comment [id number] us Grover Baker MD LABORATORY Final Resul t Performing Organization Address City/State/[facility] Co de Phone Number [facility] [address] [place] [address] documented in this encounter Visit Diagnoses Diagnosis Lymph node enlargement Enlargement of lymph nodes documented in this encounter Care Teams Animal Science Professor Relationship Specialty Start Date End Date Grover Baker MD PCP - General 06/29/17 documented as of this encounter
[2024-08-03] MEDS: Amoxicillin/Potassium Clav 500 MG TABLET PO (00:15)
[2024-08-03 00:20] VITALS: BP 116/65; PULSE 73; RESP 18; TEMP 36.7; O2SAT 99
== END 2024-08-03 00:20 | disposition home or self-care (01) ==
LOC: HO.ED 08-03 00:03
PROVIDERS: Physician Assistant Medical; Emergency Provider Emergency Medicine; PCP Physician Assistant
DX: J02.0 Streptococcal pharyngitis (principal); D64.9 Anemia, unspecified; H92.03 Otalgia, bilateral; M79.10 Myalgia, unspecified site; R50.9 Fever, unspecified; Z03.818 Encounter for observation for suspected exposure to other biological agents ruled out
CPT/HCPCS: 0241U; 36415; 80053; 81001; 84702; 85025; 87086; 87088; 87651; 99282; 99283